=== PATIENT | female | born 1955 | race Hispanic/Latino ===

== ENCOUNTER 2016-06-07 22:05 | Emergency (ER) | payer BC ==
[~2016-06-07] VITALS: Ht 157.5 cm; Wt 149.8 kg
[~2016-06-07 22:05] MED LIST: ADVAIR 500/501 DISK IH; ADVAIR HFA120 INHAL1 IH; ALEVE220 M2 PO; BENICAR HCT 401 EAC1 PO; BENICAR HCT1 TABLE2 PO; GLUCOPHAGE1000 MG PO; Glucophage PO; KEFLEX500 MG PO; LANTUS (UNITS)1 UNIT SQ; LANTUS 10100 UNITS/ SC; LOPRESSOR25 MG PO; Lantus 3 ml Solostar SC; METFORMIN HCL1000 MG PO; NAPROXEN500 MG PO; NOVOLOG (UNITS1 UNIT SQ; NOVOLOG PE100 UNITS/ SC; PREDNISONE20 MG PO; PROVENTIL HFA6.7 GM IH; SINGULAIR10 MG PO; SPIRIVA RESPIMAT4 GM IH; Singulair PO; TOPROL XL50 MG PO; ZITHROMAX500 MG PO; Zestril,Prinivil PO; Zithromax PO; predniSONE PO
[2016-06-07] MEDS ORDERED: MONDOXYNE NL100 MG PO (23:36)
[2016-06-07] MEDS ORDERED: VITAMIN D35000 UNIT PO (23:36)
[2016-06-07] MEDS ORDERED: ASPIR-LOW81 MG PO (23:37)
[2016-06-07] MEDS ORDERED: VALSARTAN-HCTZ1 EAC4 PO (23:37)
[2016-06-07 23:53] LABS: HEMATOCRIT 42.9 % (36.0-46.0); MCH 27.1 PG (29.0-34.0); MCHC 30.3 G/DL (30.0-36.0); MCV 89.6 FL (83-99); RBC DIS.WIDTH-CV 13.8 % (11.8-14.6); RBC DIS.WIDTH-SD 45.8 % (39-53); RED BLOOD COUNT 4.79 M/uL (3.80-5.20); WHITE BLOOD COUNT 7.2 K/uL (4.1-10.2)
[2016-06-07 23:57] LABS: MEAN PLAT.VOLUME 13.1 uM^3 (9.5-12.4); PLATELET COUNT 257 K/uL (156-360)
[2016-06-08 00:01] LABS: CHLORIDE 100 mEq/L (99-109); POTASSIUM 4.5 mEq/L (3.7-5.4); SODIUM 140 mEq/L (136-147)
[2016-06-08 00:05] LABS: ANION GAP 9 MEQ/L (2-14)
[2016-06-08 00:06] LABS: TOTAL BILIRUBIN 0.2 mg/dL (0.0-1.0)
[2016-06-08 00:07] LABS: ALKALINE PHOSPHATASE 132 IU/L (3-129); GFR ESTIMATE (CALCULATED) 54 mL/min/
[2016-06-08 00:09] LABS: DIRECT BILIRUBIN 0.1 mg/dL (0.0-0.3); UREA NITROGEN (BUN) 26 mg/dL (9-23)
[2016-06-08 00:11] LABS: LIPASE 18 U/L (1.0-51.0)
[2016-06-08 00:14] LABS: GLUCOSE 427 mg/dL (70-99)
[2016-06-08 00:42] LABS: ADD MIUA? YES; BILIRUBIN NEGATIVE; BLOOD NEGATIVE; COLOR YELLOW ((YELLOW)); GLUCOSE (STRIP) >=500; KETONES NEGATIVE; LEUKOCYTES LARGE; NITRITE POSITIVE; PROTEIN (STRIP) NEGATIVE; SPECIFIC GRAVITY 1.022 (1.000-1.030); UROBILINOGEN 0.2 MG/DL (0.2-1.0)
[2016-06-08 00:48] LABS: BACTERIA RARE /HPF; EPITHELIAL CELLS 1+ /HPF; MUCUS TRACE /LPF; UCUL ADDED? NO; WHITE BLOOD CELLS 15-20 /HPF (0-5)
[2016-06-08] MEDS ORDERED: KEFLEX500 MG PO (01:13)
[2016-06-08 01:59] VITALS: BP 117/69
== END 2016-06-08 02:00 | disposition home or self-care (01) ==
LOC: EME 22:05
PROVIDERS: Emergency Medicine
DX: N39.0 Urinary tract infection, site not specified (principal); R10.9 Unspecified abdominal pain; E11.9 Type 2 diabetes mellitus without complications; E78.5 Hyperlipidemia, unspecified; I10 Essential (primary) hypertension; J45.909 Unspecified asthma, uncomplicated; Z79.4 Long term (current) use of insulin; Z79.82 Long term (current) use of aspirin
CPT/HCPCS: 74176; 80048; 80076; 81003; 83690; 85027; 87077; 87086; 87186; 99281; 99285; J0696; J2270; J2405; J7030; J7050

== ENCOUNTER 2016-09-19 06:27 | Inpatient (IN) | payer BC ==
[~2016-09-19] VITALS: Ht 157.5 cm; Wt 136.2 kg
[~2016-09-19 06:27] MED LIST changes: +ASPIR-LOW81 MG PO; +DIOVAN HCT 31 TABLET PO; +LIPITOR10 MG PO; +MONDOXYNE NL100 MG PO; +TRESIBA FL100 UNIT/1 SC; +VALSARTAN-HCTZ1 EAC4 PO; +VITAMIN D35000 UNIT PO
[2016-09-19] MEDS ORDERED: FLINTSTONES M100 MCG PO (06:59)
[2016-09-19 07:10] VITALS: BP 160/61
[2016-09-19 07:14] LABS: POINT-OF-CARE METER ID UU13113694
[2016-09-19 10:59] LABS: POINT-OF-CARE METER ID UU13113675; POINT-OF-CARE USER ID 515036437
[2016-09-19 14:40] LABS: TROP-I INTERPRETATION NEGATIVE; TROPONIN-I < 0.01 ng/mL (0.0-0.30)
[2016-09-19 17:28] LABS: TROP-I INTERPRETATION NEGATIVE; TROPONIN-I < 0.01 ng/mL (0.0-0.30)
[2016-09-19 19:16] VITALS: BP 133/79
[2016-09-19 21:17] LABS: TROP-I INTERPRETATION NEGATIVE; TROPONIN-I 0.02 ng/mL (0.0-0.30)
[2016-09-19 23:54] VITALS: BP 149/64
[2016-09-20 00:28] LABS: POINT-OF-CARE METER ID UU14162508
[2016-09-20 03:51] VITALS: BP 147/71
[2016-09-20 07:08] LABS: HEMATOCRIT 42.8 % (36.0-46.0); MCH 27.4 PG (29.0-34.0); MCHC 31.1 G/DL (30.0-36.0); MCV 88.2 FL (83-99); MEAN PLAT.VOLUME 13.8 uM^3 (9.5-12.4); PLATELET COUNT 241 K/uL (156-360); RBC DIS.WIDTH-CV 14.2 % (11.8-14.6); RED BLOOD COUNT 4.85 M/uL (3.80-5.20); WHITE BLOOD COUNT 11.9 K/uL (4.1-10.2)
[2016-09-20 07:35] LABS: ANION GAP 10 MEQ/L (2-14); CHLORIDE 100 MEQ/L (99-109); GFR ESTIMATE (CALCULATED) 49 mL/min/; GLUCOSE 238 mg/dL (70-99); MAGNESIUM 1.6 mg/dl (1.3-2.7); POTASSIUM 4.9 MEQ/L (3.7-5.4); SAMPLE HEMOLYSIS CHECK 0; SAMPLE ICTERIC CHECK 0; SAMPLE LIPEMIA CHECK 0; SODIUM 138 MEQ/L (136-147); UREA NITROGEN (BUN) 26 mg/dL (9-23)
[2016-09-20 07:36] LABS: TROP-I INTERPRETATION NEGATIVE; TROPONIN-I 0.05 ng/mL (0.0-0.30)
[2016-09-20 07:50] VITALS: BP 137/63
[2016-09-20] MEDS ORDERED: HYDROCODON-ACE1 EAC7 PO (08:41)
[2016-09-20 12:21] VITALS: BP 147/69
[2016-09-20 16:05] VITALS: BP 146/63
[2016-09-20 19:40] VITALS: BP 167/59
[2016-09-20 23:19] VITALS: BP 123/53
[2016-09-21 03:48] VITALS: BP 147/68
[2016-09-21 05:56] LABS: POINT-OF-CARE METER ID UU14162508
[2016-09-21 07:13] VITALS: BP 116/69
[2016-09-21 07:20] LABS: HEMATOCRIT 39.2 % (36.0-46.0); MCH 27.1 PG (29.0-34.0); MCHC 30.9 G/DL (30.0-36.0); MCV 87.9 FL (83-99); MEAN PLAT.VOLUME 14.2 uM^3 (9.5-12.4); PLATELET COUNT 203 K/uL (156-360); RBC DIS.WIDTH-CV 14.4 % (11.8-14.6); RBC DIS.WIDTH-SD 46.5 % (39-53); RED BLOOD COUNT 4.46 M/uL (3.80-5.20); WHITE BLOOD COUNT 9.7 K/uL (4.1-10.2)
[2016-09-21 07:43] LABS: ANION GAP 8 MEQ/L (2-14); CHLORIDE 100 MEQ/L (99-109); GFR ESTIMATE (CALCULATED) > 59 mL/min/; GLUCOSE 187 mg/dL (70-99); MAGNESIUM 1.7 mg/dl (1.3-2.7); POTASSIUM 4.5 MEQ/L (3.7-5.4); SAMPLE HEMOLYSIS CHECK 0; SAMPLE ICTERIC CHECK 0; SAMPLE LIPEMIA CHECK 0; SODIUM 137 MEQ/L (136-147); UREA NITROGEN (BUN) 16 mg/dL (9-23)
== END 2016-09-21 11:31 | disposition home or self-care (01) | DRG 621 ==
LOC: 2EASTP 06:27 → 2SOUTH 06:27 → 2EASTP 15:05
PROVIDERS: Anesthesiology; Internal Medicine Cardiovascular Disease; Surgery
PROC: 0DB64Z3 Excision of Stomach, Percutaneous Endoscopic Approach, Vertical (ICD-10-PCS; principal; 2016-09-19)
DX: E66.01 Morbid (severe) obesity due to excess calories (principal); Z68.44 Body mass index [BMI] 60.0-69.9, adult; G47.33 Obstructive sleep apnea (adult) (pediatric); R07.9 Chest pain, unspecified; I11.0 Hypertensive heart disease with heart failure; I50.9 Heart failure, unspecified; E11.649 Type 2 diabetes mellitus with hypoglycemia without coma; J44.9 Chronic obstructive pulmonary disease, unspecified; I44.7 Left bundle-branch block, unspecified; M19.90 Unspecified osteoarthritis, unspecified site; M79.606 Pain in leg, unspecified; R32 Unspecified urinary incontinence; E78.5 Hyperlipidemia, unspecified
CPT/HCPCS: 80048; 82948; 83735; 84100; 84484; 85027; 93005; 94640; 94640 76; 94660; 94799; 99202; C9113; J0131; J0330; J0690; J1170; J1644; J1650; J1815; J2250; J2270; J2405; J2710; J2765; J3010; J3480; J7120; S0020

== ENCOUNTER 2016-11-07 10:06 | Day surgery (SDC) | payer BC ==
[~2016-11-07 10:06] MED LIST changes: +FLINTSTONES M100 MCG PO; +HYDROCODON-ACE1 EAC7 PO
[2016-11-07] MEDS ORDERED: ASPIRIN325 MG PO (10:38)
[2016-11-07 10:55] LABS: POINT-OF-CARE METER ID UU13113696
== END 2016-11-07 17:13 | disposition home or self-care (01) ==
LOC: CATH 10:06
PROVIDERS: Internal Medicine Cardiovascular Disease
DX: I25.10 Atherosclerotic heart disease of native coronary artery without angina pectoris (principal); I10 Essential (primary) hypertension; E11.9 Type 2 diabetes mellitus without complications; E78.2 Mixed hyperlipidemia; E66.01 Morbid (severe) obesity due to excess calories; Z68.42 Body mass index [BMI] 45.0-49.9, adult; Z79.82 Long term (current) use of aspirin; Z82.49 Family history of ischemic heart disease and other diseases of the circulatory system
CPT/HCPCS: 82948; C1769; C1887; J1200; J1644; J1815; J2250; J3010

== ENCOUNTER 2017-02-03 17:18 | Inpatient (IN) | payer BC ==
[~2017-02-03] VITALS: Ht 157.5 cm; Wt 116.0 kg
[~2017-02-03 17:18] MED LIST changes: +ASPIRIN325 MG PO; +METFORMIN HCL1000 M3 PO
[2017-02-03 18:19] LABS: POINT-OF-CARE METER ID UU14100415
[2017-02-03 18:38] LABS: BASOPHIL COUNT 0.1 K/uL (0-0.1); EOSINOPHIL (%) 0.9 % (0-5); EOSINOPHIL COUNT 0.1 K/uL (0-0.3); HEMATOCRIT 51.4 % (36.0-46.0); IMMATURE GRANULOCYTE (%) 0.5 % (0.0-0.7); IMMATURE GRANULOCYTE COUNT 0.1 K/uL; INSTRUMENT ABS NEUTROPHIL CT 6.6 K/uL; LYMPHOCYTE COUNT 1.7 K/uL (1.0-2.8); MCH 28.4 PG (29.0-34.0); MCHC 32.1 G/DL (30.0-36.0); MCV 88.5 FL (83-99); MONOCYTE (%) 7.9 % (3-12); MONOCYTE COUNT 0.7 K/uL (0-0.8); NEUTROPHIL (%) 71.6 % (45-76); NEUTROPHIL COUNT 6.6 K/uL (1.8-6.4); PLATELET COUNT 242 K/uL (156-360); RBC DIS.WIDTH-CV 15.5 % (11.8-14.6); RBC DIS.WIDTH-SD 49.9 % (39-53); RED BLOOD COUNT 5.81 M/uL (3.80-5.20); WHITE BLOOD COUNT 9.2 K/uL (4.1-10.2)
[2017-02-03 18:50] LABS: ADD MIUA? YES; BILIRUBIN MODERATE; BLOOD NEGATIVE; COLOR AMBER ((YELLOW)); GLUCOSE (STRIP) NEGATIVE; KETONES 5; LEUKOCYTES NEGATIVE; NITRITE NEGATIVE; PROTEIN (STRIP) 100; SPECIFIC GRAVITY 1.025 (1.000-1.030)
[2017-02-03 18:55] LABS: CHLORIDE 97 mEq/L (99-109); POTASSIUM 3.5 mEq/L (3.7-5.4); SODIUM 138 mEq/L (136-147)
[2017-02-03 18:56] LABS: MAGNESIUM 1.7 mg/dL (1.3-2.7)
[2017-02-03 18:57] LABS: GLUCOSE 181 mg/dL (70-99)
[2017-02-03 18:59] LABS: ANION GAP 15 MEQ/L (2-14); TOTAL BILIRUBIN 1.2 mg/dL (0.0-1.0)
[2017-02-03 19:01] LABS: ALKALINE PHOSPHATASE 110 IU/L (3-129); GFR ESTIMATE (CALCULATED) 53 mL/min/
[2017-02-03 19:02] LABS: UREA NITROGEN (BUN) 11 mg/dL (9-23)
[2017-02-03 19:04] LABS: CREATINE KINASE 50 IU/L (1-294)
[2017-02-03 19:19] LABS: BACTERIA 3+ /HPF; CASTS NONE SEEN /LPF; CRYSTALS NONE SEEN; EPITHELIAL CELLS 2+ /HPF; MUCUS NONE SEEN /LPF; RED BLOOD CELLS 0-5 /HPF (0-5); UCUL ADDED? YES; WHITE BLOOD CELLS 0-5 /HPF (0-5)
[2017-02-03 19:35] LABS: ICTOTEST NEGATIVE
[2017-02-03] MEDS ORDERED: VITAMIN B-12500 MC5 SL (22:02)
[2017-02-03] MEDS ORDERED: CALCIUM500 M4 PO (22:02)
[2017-02-03] MEDS ORDERED: DIOVAN HCT 31 TABLET PO (22:02)
[2017-02-04 00:30] VITALS: BP 134/64
[2017-02-04 03:48] VITALS: BP 122/59
[2017-02-04 05:43] LABS: MCH 27.9 PG (29.0-34.0); MCHC 31.3 G/DL (30.0-36.0); MCV 89.3 FL (83-99); PLATELET COUNT 177 K/uL (156-360); RBC DIS.WIDTH-CV 15.4 % (11.8-14.6); RBC DIS.WIDTH-SD 50.4 % (39-53); WHITE BLOOD COUNT 7.4 K/uL (4.1-10.2)
[2017-02-04 05:44] LABS: RED BLOOD COUNT 4.48 M/uL (3.80-5.20)
[2017-02-04 06:01] LABS: ALKALINE PHOSPHATASE 71 IU/L (3-129); ANION GAP 12 MEQ/L (2-14); CHLORIDE 103 MEQ/L (99-109); GFR ESTIMATE (CALCULATED) > 59 mL/min/; POTASSIUM 3.7 MEQ/L (3.7-5.4); SAMPLE HEMOLYSIS CHECK 0; SAMPLE ICTERIC CHECK 0; SAMPLE LIPEMIA CHECK 0; SODIUM 141 MEQ/L (136-147); TOTAL BILIRUBIN 0.8 MG/DL (0.0-1.0); UREA NITROGEN (BUN) 12 mg/dL (9-23)
[2017-02-04 06:04] LABS: GLUCOSE 83 mg/dL (70-99)
[2017-02-04 07:24] VITALS: BP 130/62
[2017-02-04 07:36] LABS: POINT-OF-CARE METER ID UU14162513
[2017-02-04 07:57] LABS: POINT-OF-CARE METER ID UU14162513
[2017-02-04 08:17] LABS: POINT-OF-CARE METER ID UU13113831
[2017-02-04 12:22] LABS: POINT-OF-CARE METER ID UU14162513
[2017-02-04 15:50] VITALS: BP 112/54
[2017-02-04 18:33] LABS: POINT-OF-CARE METER ID UU14162513
[2017-02-04 19:20] VITALS: BP 137/63
[2017-02-04 21:45] LABS: POINT-OF-CARE METER ID UU14162513
[2017-02-04 23:59] VITALS: BP 135/66
[2017-02-05 03:55] VITALS: BP 130/61
[2017-02-05 08:14] LABS: POINT-OF-CARE METER ID UU13113700
[2017-02-05 09:18] VITALS: BP 120/61
[2017-02-05 12:17] VITALS: BP 129/60
[2017-02-05 12:26] LABS: POINT-OF-CARE METER ID UU13113700
[2017-02-05 13:15] LABS: APPEARANCE SL.HAZY/COLORLESS
[2017-02-05 13:24] LABS: RED CELL AREA COUNTED 0.4; RED CELL COUNT 2700 /MM^3 (0-1); RED CELL DILUTION 1; WBC AREA COUNTED 18; WBC DILUTION 1; WHITE CELL COUNT 0 /MM^3 (0-5); WHITE CELL RAW COUNT 0
[2017-02-05 13:25] LABS: CSF EOSINOPHILS 0 % (0-25); MONO RAW COUNT 0; MONONUCLEAR WBC'S 0 % (50-90); POLY RAW COUNT 0; POLYNUCLEAR WBC'S 0 % (0-3)
[2017-02-05 13:28] LABS: APPEARANCE (RECHECK) CLOUDY/BLOODY; CSF TUBE NUMBER (RECHECK) TUBE #1
[2017-02-05 13:38] LABS: RED CELL AREA COUNTED 0.4; RED CELL COUNT (RECHECK) 11800 /MM^3 (0-1); RED CELL DILUTION 1
[2017-02-05 16:12] VITALS: BP 128/71
[2017-02-05 17:12] LABS: POINT-OF-CARE METER ID UU13113700
[2017-02-05 19:30] VITALS: BP 129/58
[2017-02-05 21:57] LABS: POINT-OF-CARE METER ID UU14162513
[2017-02-06] VITALS (7 sets, daily range): BP systolic 111–135; BP diastolic 54–69
[2017-02-06 03:33] LABS: POINT-OF-CARE METER ID UU13113700
[2017-02-06 05:37] LABS: HEMATOCRIT 40.6 % (36.0-46.0); MCH 28.4 PG (29.0-34.0); MCHC 31.3 G/DL (30.0-36.0); MCV 90.8 FL (83-99); PLATELET COUNT 167 K/uL (156-360); RBC DIS.WIDTH-CV 15.5 % (11.8-14.6); RBC DIS.WIDTH-SD 51.3 % (39-53); RED BLOOD COUNT 4.47 M/uL (3.80-5.20); WHITE BLOOD COUNT 7.3 K/uL (4.1-10.2)
[2017-02-06 07:20] LABS: ANION GAP 16 MEQ/L (2-14); CHLORIDE 102 MEQ/L (99-109); GFR ESTIMATE (CALCULATED) > 59 mL/min/; IRON 77 MCG/DL (35-150); SAMPLE HEMOLYSIS CHECK 0; SAMPLE ICTERIC CHECK 0; SAMPLE LIPEMIA CHECK 0; SODIUM 136 MEQ/L (136-147)
[2017-02-06 07:25] LABS: GLUCOSE 213 mg/dL (70-99); POTASSIUM 4.7 MEQ/L (3.7-5.4); UREA NITROGEN (BUN) 21 mg/dL (9-23)
[2017-02-06 07:44] LABS: FERRITIN 313 NG/ML (10-291)
[2017-02-06 12:42] LABS: POINT-OF-CARE METER ID UU13113700
[2017-02-06 15:07] LABS: POINT-OF-CARE METER ID UU14107333
[2017-02-06 18:02] LABS: POINT-OF-CARE METER ID UU13113700
[2017-02-06 22:17] LABS: POINT-OF-CARE METER ID UU13113700
[2017-02-07] VITALS (7 sets, daily range): BP systolic 100–151; BP diastolic 50–67
[2017-02-07 08:08] LABS: POINT-OF-CARE METER ID UU13113831
[2017-02-07 11:05] LABS: HEMATOCRIT 41.3 % (36.0-46.0); MCH 29.4 PG (29.0-34.0); MCHC 32.2 G/DL (30.0-36.0); MCV 91.2 FL (83-99); PLATELET COUNT 161 K/uL (156-360); RBC DIS.WIDTH-CV 15.9 % (11.8-14.6); RBC DIS.WIDTH-SD 53.4 % (39-53); RED BLOOD COUNT 4.53 M/uL (3.80-5.20); WHITE BLOOD COUNT 6.6 K/uL (4.1-10.2)
[2017-02-07 11:30] LABS: ANION GAP 7 MEQ/L (2-14); CHLORIDE 105 MEQ/L (99-109); GFR ESTIMATE (CALCULATED) > 59 mL/min/; GLUCOSE 194 mg/dL (70-99); SAMPLE HEMOLYSIS CHECK 0; SAMPLE ICTERIC CHECK 0; SAMPLE LIPEMIA CHECK 0; SODIUM 138 MEQ/L (136-147); UREA NITROGEN (BUN) 21 mg/dL (9-23)
[2017-02-07 12:04] LABS: POINT-OF-CARE METER ID UU14162513
[2017-02-07 17:17] LABS: POINT-OF-CARE METER ID UU13113831
[2017-02-07 22:21] LABS: POINT-OF-CARE METER ID UU13113831
[2017-02-08 03:30] VITALS: BP 119/59
[2017-02-08 08:03] VITALS: BP 128/60
[2017-02-08 08:27] LABS: POINT-OF-CARE METER ID UU13113700
[2017-02-08 11:51] VITALS: BP 135/59
[2017-02-08 12:40] LABS: POINT-OF-CARE METER ID UU13113831
[2017-02-08 15:55] VITALS: BP 136/66
[2017-02-08 17:14] LABS: POINT-OF-CARE METER ID UU13113700
[2017-02-08 19:57] VITALS: BP 104/51
[2017-02-08 21:24] LABS: POINT-OF-CARE METER ID UU13113831
[2017-02-08 23:36] VITALS: BP 124/56
[2017-02-09 04:09] VITALS: BP 135/63
[2017-02-09 07:52] VITALS: BP 131/80
[2017-02-09 08:51] LABS: POINT-OF-CARE METER ID UU13113831
[2017-02-09 12:31] LABS: POINT-OF-CARE METER ID UU14162513
[2017-02-09 13:01] LABS: Alpha-Tocopherol 10.2 mg/L (5.7-19.9)
[2017-02-09 15:23] VITALS: BP 161/62
[2017-02-09 17:28] LABS: POINT-OF-CARE METER ID UU14162513
[2017-02-09 19:30] VITALS: BP 131/63
[2017-02-09 21:04] LABS: POINT-OF-CARE METER ID UU13113700
[2017-02-09 23:25] VITALS: BP 135/58
[2017-02-10 03:48] VITALS: BP 139/62
[2017-02-10 04:25] LABS: POINT-OF-CARE METER ID UU14162513
[2017-02-10 08:28] LABS: POINT-OF-CARE METER ID UU13113700
[2017-02-10 09:04] VITALS: BP 139/62
[2017-02-10 11:17] VITALS: BP 119/56
[2017-02-10 12:30] LABS: POINT-OF-CARE METER ID UU13113831
[2017-02-10 16:00] VITALS: BP 138/68
[2017-02-10 17:10] LABS: POINT-OF-CARE METER ID UU14162513
[2017-02-10 20:00] VITALS: BP 116/58
[2017-02-10 21:38] LABS: POINT-OF-CARE METER ID UU13113831
[2017-02-11 03:15] VITALS: BP 129/72
[2017-02-11 05:33] LABS: EOSINOPHIL (%) 1.3 % (0-5); EOSINOPHIL COUNT 0.1 K/uL (0-0.3); IMMATURE GRANULOCYTE (%) 0.9 % (0.0-0.7); IMMATURE GRANULOCYTE COUNT 0.1 K/uL; INSTRUMENT ABS NEUTROPHIL CT 3.2 K/uL; LYMPHOCYTE COUNT 2.9 K/uL (1.0-2.8); MCH 28.5 PG (29.0-34.0); MCHC 31.4 G/DL (30.0-36.0); MCV 90.9 FL (83-99); MEAN PLAT.VOLUME 14.7 uM^3 (9.5-12.4); MONOCYTE (%) 8.1 % (3-12); MONOCYTE COUNT 0.6 K/uL (0-0.8); NEUTROPHIL (%) 47.3 % (45-76); NEUTROPHIL COUNT 3.2 K/uL (1.8-6.4); PLATELET COUNT 146 K/uL (156-360); RBC DIS.WIDTH-CV 16.3 % (11.8-14.6); RBC DIS.WIDTH-SD 54.6 % (39-53); RED BLOOD COUNT 3.96 M/uL (3.80-5.20); WHITE BLOOD COUNT 6.8 K/uL (4.1-10.2)
[2017-02-11 05:49] LABS: ANION GAP 6 MEQ/L (2-14); CHLORIDE 108 MEQ/L (99-109); GFR ESTIMATE (CALCULATED) > 59 mL/min/; GLUCOSE 198 mg/dL (70-99); POTASSIUM 3.5 MEQ/L (3.7-5.4); SAMPLE HEMOLYSIS CHECK 0; SAMPLE ICTERIC CHECK 0; SAMPLE LIPEMIA CHECK 0; SODIUM 140 MEQ/L (136-147); UREA NITROGEN (BUN) 18 mg/dL (9-23)
[2017-02-11 08:47] LABS: POINT-OF-CARE METER ID UU13113831
[2017-02-11 11:47] VITALS: BP 144/62
[2017-02-11 12:52] LABS: POINT-OF-CARE METER ID UU13113831
[2017-02-11] MEDS ORDERED: GABAPENTIN100 MG PO (14:27)
[2017-02-11] MEDS ORDERED: VITAMIN A10000 UNIT PO (14:28)
[2017-02-11] MEDS ORDERED: SUCRALFATE1 GM/10 ML PO (14:28)
[2017-02-11] MEDS ORDERED: METOCLOPRAMIDE10 MG PO (14:28)
[2017-02-11] MEDS ORDERED: PANTOPRAZOLE SO40 MG PO (14:28)
[2017-02-11 15:58] VITALS: BP 170/87
== END 2017-02-11 17:24 | DRG 98 ==
LOC: EME 17:18 → EDOF 22:07 → 5WEST 22:07 → EDOF 22:07 → ENRESERV 22:08 → EDOF 02-04 00:18 → 5WEST 02-04 00:20 → CANRESERV 02-05 10:43 → ENRESERV 02-05 10:43 → ENPENDDIS 02-11 → 5WEST 02-11 17:24
PROVIDERS: Emergency Medicine; Family Medicine; Internal Medicine; Nurse Practitioner Adult Health; Radiology Diagnostic Radiology; Student in an Organized Health Care Education/Training Program
PROC: 009U3ZX Drainage of Spinal Canal, Percutaneous Approach, Diagnostic (ICD-10-PCS; principal; 2017-02-05)
PROC: B01B1ZZ Fluoroscopy of Spinal Cord using Low Osmolar Contrast (ICD-10-PCS; principal; 2017-02-05)
PROC: 0DJ08ZZ Inspection of Upper Intestinal Tract, Via Natural or Artificial Opening Endoscopic (ICD-10-PCS; 2017-02-05)
DX: G37.3 Acute transverse myelitis in demyelinating disease of central nervous system (principal); N39.0 Urinary tract infection, site not specified; M47.16 Other spondylosis with myelopathy, lumbar region; J45.909 Unspecified asthma, uncomplicated; E46 Unspecified protein-calorie malnutrition; E87.6 Hypokalemia; R11.2 Nausea with vomiting, unspecified; E11.9 Type 2 diabetes mellitus without complications; E78.5 Hyperlipidemia, unspecified; E66.01 Morbid (severe) obesity due to excess calories; G47.33 Obstructive sleep apnea (adult) (pediatric); I50.9 Heart failure, unspecified; G62.9 Polyneuropathy, unspecified; M51.26 Other intervertebral disc displacement, lumbar region; I11.0 Hypertensive heart disease with heart failure; E86.0 Dehydration; M43.17 Spondylolisthesis, lumbosacral region; E53.8 Deficiency of other specified B group vitamins; I25.10 Atherosclerotic heart disease of native coronary artery without angina pectoris; M54.30 Sciatica, unspecified side; E50.9 Vitamin A deficiency, unspecified; E51.9 Thiamine deficiency, unspecified; W19.XXXA Unspecified fall, initial encounter; Z68.42 Body mass index [BMI] 45.0-49.9, adult; Z79.82 Long term (current) use of aspirin; Z98.84 Bariatric surgery status; Z79.84 Long term (current) use of oral hypoglycemic drugs; Z79.899 Other long term (current) drug therapy
CPT/HCPCS: 72146; 72148; 74241; 77003; 80048; 80053; 81003; 82306; 82525 90; 82550; 82607; 82728; 82746; 82945; 82948; 83540; 83735; 84100; 84157; 84425 90; 84446 90; 84590 90; 84630 90; 85025; 85027; 87086; 89051; 90686; 93970; 97530 GO; 97530 GP; 99202; 99281; 99285; C9113; G0378; G8978 GP CK; G8979 GP CI; G8987 CK; G8988 GO CJ; J1100; J1644; J1815; J1885; J2250; J2405; J2765; J3411; J3480; J7030; J7050; J8540

== ENCOUNTER 2017-03-28 11:17 | Inpatient (IN) | payer BC ==
[~2017-03-28] VITALS: Ht 157.5 cm; Wt 96.8 kg
[~2017-03-28 11:17] MED LIST changes: +CALCIUM500 M4 PO; +GABAPENTIN100 MG PO; +METOCLOPRAMIDE10 MG PO; +PANTOPRAZOLE SO40 MG PO; +SUCRALFATE1 GM/10 ML PO; +VITAMIN A10000 UNIT PO; +VITAMIN B-12500 MC5 SL
[2017-03-28 11:48] LABS: HEMATOCRIT 44.1 % (36.0-46.0); HEMOGLOBIN 14.3 G/DL (11.9-15.5); MCH 29.2 PG (29.0-34.0); MCHC 32.4 G/DL (30.0-36.0); PLATELET COUNT 254 K/uL (156-360); RBC DIS.WIDTH-CV 14.2 % (11.8-14.6); RBC DIS.WIDTH-SD 46.7 % (39-53); WHITE BLOOD COUNT 8.2 K/uL (4.1-10.2)
[2017-03-28 11:59] LABS: ALBUMIN 3.8 g/dL (3.2-4.8); CHLORIDE 89 mEq/L (99-109); POTASSIUM 3.1 mEq/L (3.7-5.4); SODIUM 140 mEq/L (136-147)
[2017-03-28 12:01] LABS: GLUCOSE 303 mg/dL (70-99)
[2017-03-28 12:03] LABS: TOTAL BILIRUBIN 0.9 mg/dL (0.0-1.0)
[2017-03-28 12:05] LABS: ALKALINE PHOSPHATASE 108 IU/L (3-129); CREATININE 1.9 mg/dL (0.6-1.3); GFR ESTIMATE (CALCULATED) 28 mL/min/
[2017-03-28 12:06] LABS: UREA NITROGEN (BUN) 35 mg/dL (9-23)
[2017-03-28 12:07] LABS: AST (GOT) 31 IU/L (2-34)
[2017-03-28 12:08] LABS: ALT (GPT) 22 IU/L (3-49)
[2017-03-28 13:03] LABS: APPEARANCE CLOUDY ((CLEAR)); BILIRUBIN NEGATIVE; BLOOD NEGATIVE; COLOR YELLOW ((YELLOW)); GLUCOSE (STRIP) NEGATIVE; KETONES NEGATIVE; LEUKOCYTES LARGE; NITRITE NEGATIVE; PROTEIN (STRIP) NEGATIVE; UROBILINOGEN 0.2 MG/DL (0.2-1.0)
[2017-03-28 13:16] LABS: BACTERIA 3+ /HPF; EPITHELIAL CELLS RARE /HPF; HYALINE CASTS 30-40 /LPF; MUCUS TRACE /LPF; RED BLOOD CELLS 0-5 /HPF (0-5); UCUL ADDED? YES; WHITE BLOOD CELLS TNTC /HPF (0-5)
[2017-03-28 14:02] LABS: LIPASE 30 U/L (1.0-51.0)
[2017-03-28] MEDS ORDERED: METOPROLOL SUCC50 MG PO (15:32)
[2017-03-28] MEDS ORDERED: CENTRUM SILV1 TABLET PO (15:32)
[2017-03-28] MEDS ORDERED: ASPIR 8181 M1 PO (15:32)
[2017-03-28] MEDS ORDERED: PROTONIX40 MG PO (15:32)
[2017-03-28] MEDS ORDERED: TRESIBA FL100 UNIT/1 SC (15:33)
[2017-03-28] MEDS ORDERED: NOVOLOG PE100 UNITS/ SC (15:33)
[2017-03-28] MEDS ORDERED: VITAMIN D35000 UNIT PO (15:33)
[2017-03-28] MEDS ORDERED: TRIAMCINOLONE A15 GM TP (15:34)
[2017-03-28] MEDS ORDERED: CARAFATE1 GM PO (15:34)
[2017-03-28] MEDS ORDERED: VENTOLIN HFA18 GM IH (15:34)
[2017-03-28] MEDS ORDERED: ADVAIR HFA120 INHALA IH (15:34)
[2017-03-28] MEDS ORDERED: SINGULAIR10 MG PO (15:35)
[2017-03-28] MEDS ORDERED: METOLAZONE5 MG PO (15:35)
[2017-03-28] MEDS ORDERED: NEURONTIN100 MG PO (15:35)
[2017-03-28] MEDS ORDERED: LASIX40 MG PO (15:35)
[2017-03-28] MEDS ORDERED: LIPITOR10 MG PO (15:36)
[2017-03-28] MEDS ORDERED: REGLAN10 MG PO (15:36)
[2017-03-28] MEDS ORDERED: KLOR-CON M2020 MEQ PO (15:36)
[2017-03-28] MEDS ORDERED: FOLIC ACID1 MG PO (15:36)
[2017-03-28] MEDS ORDERED: B-1100 MG PO (15:36)
[2017-03-28] MEDS ORDERED: VITAMIN A10000 UNIT PO (17:41)
[2017-03-28 22:49] VITALS: BP 115/58
[2017-03-29 03:56] VITALS: BP 118/58
[2017-03-29 05:30] LABS: HEMATOCRIT 38.2 % (36.0-46.0); HEMOGLOBIN 12.1 G/DL (11.9-15.5); MCH 29.2 PG (29.0-34.0); MCHC 31.7 G/DL (30.0-36.0); MCV 92.3 FL (83-99); PLATELET COUNT 200 K/uL (156-360); RBC DIS.WIDTH-CV 14.5 % (11.8-14.6); RBC DIS.WIDTH-SD 49.1 % (39-53); RED BLOOD COUNT 4.14 M/uL (3.80-5.20); WHITE BLOOD COUNT 8.4 K/uL (4.1-10.2)
[2017-03-29 05:56] LABS: CHLORIDE 96 MEQ/L (99-109); CREATININE 1.7 MG/DL (0.6-1.3); GFR ESTIMATE (CALCULATED) 32 mL/min/; POTASSIUM 2.7 MEQ/L (3.7-5.4); SODIUM 143 MEQ/L (136-147); UREA NITROGEN (BUN) 31 mg/dL (9-23)
[2017-03-29 05:57] LABS: GLUCOSE 129 mg/dL (70-99)
[2017-03-29 06:55] VITALS: BP 135/63
[2017-03-29 11:56] VITALS: BP 117/58
[2017-03-29 12:43] LABS: TROP-I INTERPRETATION NEGATIVE; TROPONIN-I 0.02 ng/mL (0.0-0.30)
[2017-03-29 15:37] VITALS: BP 113/60
[2017-03-29 19:17] LABS: CHLORIDE 100 MEQ/L (99-109); CREATININE 1.5 MG/DL (0.6-1.3); GFR ESTIMATE (CALCULATED) 37 mL/min/; MAGNESIUM 1.5 mg/dl (1.3-2.7); SODIUM 141 MEQ/L (136-147); UREA NITROGEN (BUN) 34 mg/dL (9-23)
[2017-03-29 19:18] LABS: GLUCOSE 88 mg/dL (70-99); POTASSIUM 3.3 MEQ/L (3.7-5.4)
[2017-03-29 19:52] VITALS: BP 100/52
[2017-03-29 23:30] VITALS: BP 120/64
[2017-03-30 03:15] VITALS: BP 113/53
[2017-03-30 06:29] LABS: CHLORIDE 101 MEQ/L (99-109); CREATININE 1.4 MG/DL (0.6-1.3); GFR ESTIMATE (CALCULATED) 40 mL/min/; GLUCOSE 60 mg/dL (70-99); POTASSIUM 2.8 MEQ/L (3.7-5.4); SODIUM 143 MEQ/L (136-147); UREA NITROGEN (BUN) 34 mg/dL (9-23)
[2017-03-30 06:45] LABS: BASOPHIL (%) 0.9 % (0-1); BASOPHIL COUNT 0.1 K/uL (0-0.1); EOSINOPHIL (%) 2.9 % (0-5); EOSINOPHIL COUNT 0.2 K/uL (0-0.3); HEMATOCRIT 34.5 % (36.0-46.0); HEMOGLOBIN 10.9 G/DL (11.9-15.5); IMMATURE GRANULOCYTE (%) 0.4 % (0.0-0.7); LYMPHOCYTE COUNT 2.8 K/uL (1.0-2.8); MCH 29.5 PG (29.0-34.0); MCHC 31.6 G/DL (30.0-36.0); MCV 93.2 FL (83-99); MONOCYTE (%) 8.7 % (3-12); MONOCYTE COUNT 0.6 K/uL (0-0.8); NEUTROPHIL (%) 47.1 % (45-76); NEUTROPHIL COUNT 3.2 K/uL (1.8-6.4); PLATELET COUNT 192 K/uL (156-360); RBC DIS.WIDTH-CV 14.4 % (11.8-14.6); RBC DIS.WIDTH-SD 49.4 % (39-53); WHITE BLOOD COUNT 6.9 K/uL (4.1-10.2)
[2017-03-30 08:05] VITALS: BP 103/52
[2017-03-30 12:36] VITALS: BP 100/55
[2017-03-30 15:00] VITALS: BP 110/51
[2017-03-30 19:34] VITALS: BP 95/53
[2017-03-30 23:55] VITALS: BP 121/55
[2017-03-31 03:15] VITALS: BP 101/53
[2017-03-31 05:34] LABS: BASOPHIL (%) 0.8 % (0-1); BASOPHIL COUNT 0.1 K/uL (0-0.1); EOSINOPHIL (%) 3.2 % (0-5); EOSINOPHIL COUNT 0.2 K/uL (0-0.3); HEMATOCRIT 33.7 % (36.0-46.0); HEMOGLOBIN 10.5 G/DL (11.9-15.5); IMMATURE GRANULOCYTE (%) 0.2 % (0.0-0.7); LYMPHOCYTE COUNT 2.3 K/uL (1.0-2.8); MCH 29.3 PG (29.0-34.0); MCHC 31.2 G/DL (30.0-36.0); MCV 94.1 FL (83-99); MONOCYTE (%) 8.5 % (3-12); MONOCYTE COUNT 0.5 K/uL (0-0.8); NEUTROPHIL (%) 49.3 % (45-76); PLATELET COUNT 167 K/uL (156-360); RBC DIS.WIDTH-CV 14.6 % (11.8-14.6); RBC DIS.WIDTH-SD 50.5 % (39-53); RED BLOOD COUNT 3.58 M/uL (3.80-5.20)
[2017-03-31 06:09] LABS: CHLORIDE 106 MEQ/L (99-109); CREATININE 1.1 MG/DL (0.6-1.3); GFR ESTIMATE (CALCULATED) 53 mL/min/; POTASSIUM 3.5 MEQ/L (3.7-5.4); SODIUM 143 MEQ/L (136-147); UREA NITROGEN (BUN) 28 mg/dL (9-23)
[2017-03-31 06:10] LABS: GLUCOSE 139 mg/dL (70-99)
[2017-03-31 07:46] VITALS: BP 119/58
[2017-03-31 11:03] VITALS: BP 116/56
[2017-03-31 20:00] VITALS: BP 124/54
[2017-03-31 23:17] VITALS: BP 106/55
[2017-04-01 03:52] VITALS: BP 110/56
[2017-04-01 06:05] LABS: BASOPHIL (%) 0.5 % (0-1); EOSINOPHIL (%) 3.1 % (0-5); EOSINOPHIL COUNT 0.2 K/uL (0-0.3); HEMATOCRIT 32.8 % (36.0-46.0); HEMOGLOBIN 10.1 G/DL (11.9-15.5); IMMATURE GRANULOCYTE (%) 0.2 % (0.0-0.7); LYMPHOCYTE (%) 37.6 % (15-42); LYMPHOCYTE COUNT 2.3 K/uL (1.0-2.8); MCH 28.9 PG (29.0-34.0); MCHC 30.8 G/DL (30.0-36.0); MONOCYTE (%) 6.9 % (3-12); MONOCYTE COUNT 0.4 K/uL (0-0.8); NEUTROPHIL (%) 51.7 % (45-76); NEUTROPHIL COUNT 3.2 K/uL (1.8-6.4); PLATELET COUNT 169 K/uL (156-360); RBC DIS.WIDTH-CV 14.8 % (11.8-14.6); RBC DIS.WIDTH-SD 51.2 % (39-53); RED BLOOD COUNT 3.49 M/uL (3.80-5.20); WHITE BLOOD COUNT 6.2 K/uL (4.1-10.2)
[2017-04-01 06:35] LABS: CHLORIDE 107 MEQ/L (99-109); CREATININE 0.9 MG/DL (0.6-1.3); GFR ESTIMATE (CALCULATED) > 59 mL/min/; GLUCOSE 86 mg/dL (70-99); POTASSIUM 3.4 MEQ/L (3.7-5.4); SODIUM 146 MEQ/L (136-147); UREA NITROGEN (BUN) 20 mg/dL (9-23)
[2017-04-01 08:58] VITALS: BP 129/58
[2017-04-01 12:28] VITALS: BP 109/57
[2017-04-01 15:10] VITALS: BP 103/55
[2017-04-01 20:00] VITALS: BP 106/58
[2017-04-02 05:28] LABS: BASOPHIL (%) 0.5 % (0-1); EOSINOPHIL COUNT 0.2 K/uL (0-0.3); HEMATOCRIT 33.6 % (36.0-46.0); HEMOGLOBIN 10.4 G/DL (11.9-15.5); IMMATURE GRANULOCYTE (%) 0.2 % (0.0-0.7); LYMPHOCYTE (%) 39.1 % (15-42); LYMPHOCYTE COUNT 2.3 K/uL (1.0-2.8); MCH 29.3 PG (29.0-34.0); MCV 94.6 FL (83-99); MONOCYTE (%) 6.7 % (3-12); MONOCYTE COUNT 0.4 K/uL (0-0.8); NEUTROPHIL (%) 50.5 % (45-76); PLATELET COUNT 158 K/uL (156-360); RBC DIS.WIDTH-CV 14.9 % (11.8-14.6); RBC DIS.WIDTH-SD 51.9 % (39-53); RED BLOOD COUNT 3.55 M/uL (3.80-5.20); WHITE BLOOD COUNT 5.9 K/uL (4.1-10.2)
[2017-04-02 06:34] LABS: CHLORIDE 106 MEQ/L (99-109); CREATININE 0.9 MG/DL (0.6-1.3); GFR ESTIMATE (CALCULATED) > 59 mL/min/; MAGNESIUM 1.6 mg/dl (1.3-2.7); SODIUM 143 MEQ/L (136-147); UREA NITROGEN (BUN) 17 mg/dL (9-23)
[2017-04-02 06:35] LABS: GLUCOSE 141 mg/dL (70-99); POTASSIUM 4.2 MEQ/L (3.7-5.4)
[2017-04-02 07:19] VITALS: BP 116/54
[2017-04-02] MEDS ORDERED: AMOX TR-K CLV1 EAC4 PO (10:53)
[2017-04-02 11:42] VITALS: BP 132/78
== END 2017-04-02 12:50 | disposition home health service (06) | DRG 690 ==
LOC: EME 11:17 → EDOF 17:05 → 5WEST 17:05 → ENRESERV 17:18 → 5WEST 22:27
PROVIDERS: Internal Medicine; Physician Assistant Medical
DX: N39.0 Urinary tract infection, site not specified (principal); R07.9 Chest pain, unspecified; N17.9 Acute kidney failure, unspecified; I11.0 Hypertensive heart disease with heart failure; I50.9 Heart failure, unspecified; E87.6 Hypokalemia; E11.649 Type 2 diabetes mellitus with hypoglycemia without coma; E50.9 Vitamin A deficiency, unspecified; E78.5 Hyperlipidemia, unspecified; E86.0 Dehydration; G47.33 Obstructive sleep apnea (adult) (pediatric); J44.9 Chronic obstructive pulmonary disease, unspecified; K21.9 Gastro-esophageal reflux disease without esophagitis; Z98.84 Bariatric surgery status; E53.8 Deficiency of other specified B group vitamins; R53.1 Weakness
CPT/HCPCS: 71045; 73700; 74176; 80048; 80048 91; 80053; 81003; 82948; 83690; 83735; 84132 91; 84484; 85025; 85027; 87040; 87077; 87086; 87186; 93005; 94640; 94640 76; 94660; 97530 GO; 99202; 99281; 99285; G0378; J0696; J1644; J1815; J2405; J3480; J7030

== ENCOUNTER 2017-05-21 22:46 | Emergency (ER) | payer BC ==
[~2017-05-21] VITALS: Ht 157.5 cm; Wt 107.4 kg
[~2017-05-21 22:46] MED LIST changes: +ADVAIR HFA120 INHALA IH; +AMOX TR-K CLV1 EAC4 PO; +ASPIR 8181 M1 PO; +B-1100 MG PO; +CARAFATE1 GM PO; +CENTRUM SILV1 TABLET PO; +FOLIC ACID1 MG PO; +KLOR-CON M2020 MEQ PO; +LASIX40 MG PO; +METOLAZONE5 MG PO; +METOPROLOL SUCC50 MG PO; +NEURONTIN100 MG PO; +PROTONIX40 MG PO; +REGLAN10 MG PO; +TRIAMCINOLONE A15 GM TP; +VENTOLIN HFA18 GM IH
[2017-05-22] MEDS ORDERED: ULTRAM50 MG PO (00:55)
[2017-05-22 01:10] VITALS: BP 181/65
== END 2017-05-22 01:12 | disposition home or self-care (01) ==
LOC: EME 22:46
DX: S63.501A Unspecified sprain of right wrist, initial encounter (principal); X50.1XXA Overexertion from prolonged static or awkward postures, initial encounter; M79.631 Pain in right forearm; E11.9 Type 2 diabetes mellitus without complications; Z79.4 Long term (current) use of insulin; I11.0 Hypertensive heart disease with heart failure; I50.9 Heart failure, unspecified; E78.5 Hyperlipidemia, unspecified; J45.909 Unspecified asthma, uncomplicated
CPT/HCPCS: 73090; 73110; 73130; 99281; 99283

== ENCOUNTER 2017-07-25 22:53 | Emergency (ER) | payer BC ==
[~2017-07-25] VITALS: Ht 157.5 cm; Wt 95.5 kg
[~2017-07-25 22:53] MED LIST changes: +ULTRAM50 MG PO
[2017-07-26] MEDS ORDERED: FLEXERIL10 MG PO (02:44)
[2017-07-26] MEDS ORDERED: NORCO 5/3251 TABLET PO (02:44)
[2017-07-26 03:32] VITALS: BP 134/88
== END 2017-07-26 03:35 | disposition home or self-care (01) ==
LOC: EME 22:53
DX: S16.1XXA Strain of muscle, fascia and tendon at neck level, initial encounter (principal); S40.012A Contusion of left shoulder, initial encounter; S00.93XA Contusion of unspecified part of head, initial encounter; W20.8XXA Other cause of strike by thrown, projected or falling object, initial encounter; I10 Essential (primary) hypertension; J45.909 Unspecified asthma, uncomplicated; I50.9 Heart failure, unspecified; E78.5 Hyperlipidemia, unspecified; E11.9 Type 2 diabetes mellitus without complications; Z79.4 Long term (current) use of insulin; Z79.82 Long term (current) use of aspirin
CPT/HCPCS: 70450; 72125; 73030; 99281; 99284